=== PATIENT | female | born 1960 | race Caucasian/White ===

== ENCOUNTER → 2021-10-07 | Outpatient (CLI) | payer OTHER | LOC: KOH-I 16:45 | DX: J20.9 Acute bronchitis, unspecified (principal); R91.8 Other nonspecific abnormal finding of lung field | CPT/HCPCS: 71046 ==

== ENCOUNTER → 2021-10-27 | Outpatient (CLI) | payer OTHER | LOC: CT 06:41 | DX: R91.8 Other nonspecific abnormal finding of lung field (principal) | CPT/HCPCS: 71250 ==

== ENCOUNTER → 2021-10-30 | Day surgery (SDC) | payer OTHER ==
[~2021-10-30] MED LIST: ALBUTEROL2.5 MG/3 M INH; FLONASE 0.05% N16 GM; LOSARTAN POTAS100 MG PO; MONTELUKAST SOD10 MG PO; OMEPRAZOLE40 MG PO; PROAIR HFA8.5 GM INH
== END | disposition home or self-care (01) ==
LOC: OR 09:55
DX: C34.11 Malignant neoplasm of upper lobe, right bronchus or lung (principal); J44.9 Chronic obstructive pulmonary disease, unspecified; K21.9 Gastro-esophageal reflux disease without esophagitis; I10 Essential (primary) hypertension; G47.33 Obstructive sleep apnea (adult) (pediatric); Z87.891 Personal history of nicotine dependence; Z88.2 Allergy status to sulfonamides; Z88.5 Allergy status to narcotic agent; Z91.040 Latex allergy status; Z88.8 Allergy status to other drugs, medicaments and biological substances; Z79.899 Other long term (current) drug therapy
CPT/HCPCS: J2704; J3010

== ENCOUNTER → 2021-11-12 | Outpatient (CLI) | payer OTHER ==
[~2021-11-12] MED LIST changes: +CLONAZEPAM0.5 M1 PO; +HYDROCODON-ACE1 EAC4 PO; +OMNICEF 300 MG300 MG PO
== END ==
LOC: MRI 10:26
DX: C34.11 Malignant neoplasm of upper lobe, right bronchus or lung (principal)
CPT/HCPCS: 70553; A9577; J1940

== ENCOUNTER 2021-11-13 22:58 | Emergency (ER) | payer OTHER ==
[~2021-11-13 22:58] MED LIST changes: -HYDROCODON-ACE1 EAC4 PO; -OMNICEF 300 MG300 MG PO
[2021-11-13 23:58] LABS: HEMOGLOBIN 15.4 gm/dl (12.3-15.3); RED BLOOD COUNT 5.02 M/UL (4.00-5.10)
[2021-11-14 00:29] LABS: BUN/CREATININE RATIO 17 (0-10)
[2021-11-14] MEDS ORDERED: OMNICEF 300 MG300 MG PO (02:16)
[2021-11-14] MEDS ORDERED: HYDROCODON-ACE1 EAC4 PO (02:17)
== END 2021-11-14 02:52 | disposition home or self-care (01) ==
LOC: ER1 22:58
PROVIDERS: Physician Assistant
DX: J18.9 Pneumonia, unspecified organism (principal); I10 Essential (primary) hypertension; F17.200 Nicotine dependence, unspecified, uncomplicated
CPT/HCPCS: 71045; 71250; 80053; 82550; 82553; 83880; 84484; 85025; 85610; 85730; 96374; 99285; J2270

== ENCOUNTER 2021-11-17 06:46 | Emergency (ER) | payer OTHER ==
[2021-11-17 08:03] LABS: HEMOGLOBIN 15.9 gm/dl (12.3-15.3); RED BLOOD COUNT 5.17 M/UL (4.00-5.10); WHITE BLOOD COUNT 9.7 K/UL (4.5-11.0)
[2021-11-17 08:35] LABS: BUN/CREATININE RATIO 16 (0-10)
== END 2021-11-17 09:02 | disposition home or self-care (01) ==
LOC: ER1 06:46
PROVIDERS: Emergency Medicine
DX: J44.0 Chronic obstructive pulmonary disease with (acute) lower respiratory infection (principal); J18.9 Pneumonia, unspecified organism; I10 Essential (primary) hypertension; Z91.041 Radiographic dye allergy status
CPT/HCPCS: 71045; 80053; 82550; 82553; 83605; 83735; 83880; 84100; 84484; 85025; 85610; 87040; 96365; 96366; 96368; 96375; 99285; J2405; J3370; J7030

== ENCOUNTER → 2021-11-17 | Day surgery (SDC) | payer OTHER ==
[~2021-11-17] MED LIST changes: +HYDROCODON-ACE1 EAC4 PO; +OMNICEF 300 MG300 MG PO
== END | disposition home or self-care (01) ==
LOC: OR 06:16
DX: C34.11 Malignant neoplasm of upper lobe, right bronchus or lung (principal); I10 Essential (primary) hypertension; J44.9 Chronic obstructive pulmonary disease, unspecified; G47.33 Obstructive sleep apnea (adult) (pediatric); E11.9 Type 2 diabetes mellitus without complications; K21.9 Gastro-esophageal reflux disease without esophagitis; M79.7 Fibromyalgia; Z87.891 Personal history of nicotine dependence; Z88.5 Allergy status to narcotic agent; Z88.1 Allergy status to other antibiotic agents; Z88.8 Allergy status to other drugs, medicaments and biological substances; Z91.013 Allergy to seafood; Z91.040 Latex allergy status; Z79.899 Other long term (current) drug therapy
CPT/HCPCS: 77001; C1769; C1788; J0690; J1642; J2250; J2370; J2704; J3010; J7040

== ENCOUNTER 2021-12-12 20:50 | Inpatient (IN) | payer OTHER ==
[~2021-12-12] VITALS: Ht 162.6 cm; Wt 83.5 kg
[~2021-12-12 20:50] MED LIST changes: -CLONAZEPAM0.5 M1 PO; +KLONOPIN0.5 MG PO
[2021-12-12 22:27] LABS: HEMOGLOBIN 12.2 gm/dl (12.3-15.3); RED BLOOD COUNT 4.05 M/UL (4.00-5.10)
[2021-12-12 22:34] LABS: BUN/CREATININE RATIO 26 (0-10)
[2021-12-12 22:44] LABS: WHITE BLOOD COUNT 0.5 K/UL (4.5-11.0)
[2021-12-13 07:56] LABS: HEMOGLOBIN 11.5 gm/dl (12.3-15.3); RED BLOOD COUNT 3.8 M/UL (4.00-5.10)
[2021-12-13 08:12] LABS: WHITE BLOOD COUNT 0.5 K/UL (4.5-11.0)
[2021-12-13 08:16] LABS: BUN/CREATININE RATIO 24 (0-10)
[2021-12-13] MEDS ORDERED: ONDANSETRON ODT8 MG PO (09:31)
[2021-12-13] MEDS ORDERED: LEVOTHYROXINE25 MCG PO (09:31)
[2021-12-13] MEDS ORDERED: AMOX TR-K CLV1 EAC4 PO (09:32)
[2021-12-14 05:27] LABS: HEMOGLOBIN 11.8 gm/dl (12.3-15.3); RED BLOOD COUNT 3.88 M/UL (4.00-5.10)
[2021-12-14 05:28] LABS: BUN/CREATININE RATIO 20 (0-10)
--- NOTE | 2021-12-14 05:41 | NUR ---
LAB CALLED WITH CRITICAL LABS OF WBC OF 0.7 AND PLATELET COUNT OF 38, BOTH ARE STILL CRITICAL BUT HAVE NOT WORSENED SINCE LAST SET OF LABS.
--- NOTE | 2021-12-14 16:38 | NUR ---
DR ALVAREZ CALLED AT PATIENTS REQUEST, SHE IS CONCERNED ABOUT HER ESTEBAN OF CARE AND STATES HER FOOT IS GETTING WORSE. DR ALVAREZ IS AT THE BEDSIDE TO SEE PATIENT.
--- NOTE | 2021-12-14 23:45 | NUR ---
1400 DOSE OF VANC WAS GIVEN LATE, SPOKE WITH GIL IN PHARMACY WHO STATED IT WAS FINE TO ADMINISTER 2200 DOSE OF VANC, NO NEED TO ADJUST SCHEDULED TIMES.
[2021-12-15 05:44] LABS: HEMOGLOBIN 11.7 gm/dl (12.3-15.3); RED BLOOD COUNT 3.87 M/UL (4.00-5.10)
[2021-12-15 05:47] LABS: WHITE BLOOD COUNT 0.9 K/UL (4.5-11.0)
[2021-12-15 06:17] LABS: BUN/CREATININE RATIO 13 (0-10)
--- NOTE | 2021-12-15 07:35 | NUR ---
DURING ADMINISTRATION OF VANC AND MERREM PATIENT HAD EPISODE OF DRY HEAVING AND FEELING "SWEATY" FSBG WAS OBTAINED AT 116, VITALS STABLE. PATIENT REQUESTED THAT THE INFUSION BE STOPPED. SHE ALSO REFUSED HER MORNING MEDICATION PASS. DAY SHIFT NURSE INFORMED TO NOTIFY PROVIDER.
--- NOTE | 2021-12-15 07:39 | NUR ---
LAB CALLED CRITICAL LAB OF WBC 0.9, THOUGH IT IS CRITICAL IT IS AN IMPROVEMENT FROM LAST LAB.
[2021-12-16 06:25] LABS: HEMOGLOBIN 12.1 gm/dl (12.3-15.3); RED BLOOD COUNT 4.02 M/UL (4.00-5.10)
[2021-12-16 06:49] LABS: BUN/CREATININE RATIO 15 (0-10)
[2021-12-16 07:40] LABS: WHITE BLOOD COUNT 3.6 K/UL (4.5-11.0)
[2021-12-16 09:29] LABS: WHITE BLOOD COUNT 0.7 K/UL (4.5-11.0)
[2021-12-17 06:11] LABS: BUN/CREATININE RATIO 12 (0-10)
[2021-12-17 06:24] LABS: HEMOGLOBIN 13.1 gm/dl (12.3-15.3); RED BLOOD COUNT 4.28 M/UL (4.00-5.10)
[2021-12-17 07:11] LABS: WHITE BLOOD COUNT 14.6 K/UL (4.5-11.0)
[2021-12-17] MEDS ORDERED: CLINDAMYCIN HC300 MG PO (09:11)
[2021-12-17] MEDS ORDERED: OXYCODON-ACETA1 EACH PO (09:11)
== END 2021-12-17 11:27 | disposition home or self-care (01) | DRG 602 ==
LOC: ER1 20:50 → CDU 12-13 00:24 → MED SURG 4 12-13 00:24
PROVIDERS: Internal Medicine; Physician Assistant; Registered Nurse; ADMIT Internal Medicine Infectious Disease
DX: L03.116 Cellulitis of left lower limb (principal); D61.810 Antineoplastic chemotherapy induced pancytopenia; Z20.822 Contact with and (suspected) exposure to COVID-19; J18.9 Pneumonia, unspecified organism; D84.9 Immunodeficiency, unspecified; C34.11 Malignant neoplasm of upper lobe, right bronchus or lung; J44.0 Chronic obstructive pulmonary disease with (acute) lower respiratory infection; D69.59 Other secondary thrombocytopenia; T45.1X5A Adverse effect of antineoplastic and immunosuppressive drugs, initial encounter; D70.2 Other drug-induced agranulocytosis; R73.03 Prediabetes; E83.42 Hypomagnesemia; G89.29 Other chronic pain; E66.9 Obesity, unspecified; I10 Essential (primary) hypertension; Z87.891 Personal history of nicotine dependence; Z87.01 Personal history of pneumonia (recurrent); Z68.31 Body mass index [BMI] 31.0-31.9, adult
CPT/HCPCS: 36415; 73630; 73700; 80048; 80053; 80202; 83036; 83605; 83735; 84132; 85007; 85025; 85027; 85652; 86140; 87040; 87081; 94640; 94760; 96365; 96366; 96368; 96372; 96374; 96375; 96376; 99285; G0378; J0696; J1170; J1442; J1650; J2185; J3370; J3475; J7070

== ENCOUNTER → 2021-12-25 | Outpatient (CLI) | payer OTHER ==
[~2021-12-25] MED LIST changes: +AMOX TR-K CLV1 EAC4 PO; +CLINDAMYCIN HC300 MG PO; +LEVOTHYROXINE25 MCG PO; +ONDANSETRON ODT8 MG PO; +OXYCODON-ACETA1 EACH PO
== END ==
LOC: KOH-I 14:06
DX: C34.11 Malignant neoplasm of upper lobe, right bronchus or lung (principal)
CPT/HCPCS: 93971

== ENCOUNTER 2022-02-01 19:56 | Inpatient (IN) | payer OTHER ==
[~2022-02-01] VITALS: Ht 162.6 cm; Wt 68.9 kg
[2022-02-01 22:36] LABS: HEMOGLOBIN 10.2 gm/dl (12.3-15.3); RED BLOOD COUNT 3.25 M/UL (4.00-5.10); WHITE BLOOD COUNT 2.2 K/UL (4.5-11.0)
[2022-02-01 22:55] LABS: BUN/CREATININE RATIO 26 (0-10)
[2022-02-02 03:41] LABS: HEMOGLOBIN 8.8 gm/dl (12.3-15.3)
[2022-02-02 03:49] LABS: RED BLOOD COUNT 2.82 M/UL (4.00-5.10)
[2022-02-02 03:52] LABS: WHITE BLOOD COUNT 1.4 K/UL (4.5-11.0)
[2022-02-02] MEDS ORDERED: PROMETHAZINE HC25 M1 PO (10:05)
[2022-02-02] MEDS ORDERED: POTASSIUM CHLO10 ME1 PO (10:15)
[2022-02-02 12:53] LABS: BUN/CREATININE RATIO 29 (0-10)
[2022-02-03] MEDS ORDERED: ANTACID M LIQU355 ML PO (22:43)
[2022-02-03] MEDS ORDERED: DIFLUCAN200 MG PO (22:49)
[2022-02-03] MEDS ORDERED: AMOX TR-K CLV1 EAC4 PO (22:49)
[2022-02-05] MEDS ORDERED: AMOX TR-K CLV1 EAC4 PO (13:41)
[2022-02-05] MEDS ORDERED: DIFLUCAN200 MG PO (13:42)
== END 2022-02-02 17:48 | disposition left against medical advice (07) | DRG 808 ==
LOC: ER1 19:56 → CDU 02-02 01:01
PROVIDERS: Internal Medicine; Physician Assistant; ADMIT Internal Medicine
DX: D61.810 Antineoplastic chemotherapy induced pancytopenia (principal); N17.0 Acute kidney failure with tubular necrosis; C34.90 Malignant neoplasm of unspecified part of unspecified bronchus or lung; E66.9 Obesity, unspecified; I10 Essential (primary) hypertension; E78.5 Hyperlipidemia, unspecified; J44.9 Chronic obstructive pulmonary disease, unspecified; E03.9 Hypothyroidism, unspecified; E86.0 Dehydration; E87.6 Hypokalemia; Z68.30 Body mass index [BMI] 30.0-30.9, adult; Z90.49 Acquired absence of other specified parts of digestive tract; Z87.891 Personal history of nicotine dependence; Z88.1 Allergy status to other antibiotic agents; Z91.041 Radiographic dye allergy status; Z53.21 Procedure and treatment not carried out due to patient leaving prior to being seen by health care provider
CPT/HCPCS: 71045; 80048; 80053; 81001; 82550; 82553; 83605; 83690; 83735; 84100; 84484; 84550; 85025; 87040; 93005; 96361; 96365; 96368; 96375; 99285; C9113; J2405; J3475; J3480

== ENCOUNTER 2022-02-03 19:27 | Emergency (ER) | payer OTHER ==
[~2022-02-03 19:27] MED LIST changes: +POTASSIUM CHLO10 ME1 PO; +PROMETHAZINE HC25 M1 PO
[2022-02-03 20:07] LABS: HEMOGLOBIN 8.1 gm/dl (12.3-15.3); RED BLOOD COUNT 2.59 M/UL (4.00-5.10)
[2022-02-03 20:26] LABS: WHITE BLOOD COUNT 0.2 K/UL (4.5-11.0)
[2022-02-03 20:27] LABS: BUN/CREATININE RATIO 21 (0-10)
[2022-02-03] MEDS ORDERED: ANTACID M LIQU355 ML PO (22:43)
[2022-02-03] MEDS ORDERED: AMOX TR-K CLV1 EAC4 PO (22:49)
[2022-02-03] MEDS ORDERED: DIFLUCAN200 MG PO (22:49)
[2022-02-05] MEDS ORDERED: AMOX TR-K CLV1 EAC4 PO (13:41)
[2022-02-05] MEDS ORDERED: DIFLUCAN200 MG PO (13:42)
== END 2022-02-04 | disposition home or self-care (01) ==
LOC: ER1 19:27
PROVIDERS: Family Medicine
DX: E86.0 Dehydration (principal); R13.10 Dysphagia, unspecified; D72.819 Decreased white blood cell count, unspecified; C34.90 Malignant neoplasm of unspecified part of unspecified bronchus or lung; J45.909 Unspecified asthma, uncomplicated; I10 Essential (primary) hypertension
CPT/HCPCS: 80053; 81001; 85025; 87040; 87081; 87086; 87880; 93005; 96365; 96366; 96367; 96368; 99284; J1442; J1450; J2543; J3370; J7030